=== PATIENT | male | born 1990 | race Caucasian/White ===

== ENCOUNTER 2019-11-13 07:29 | Outpatient (CLI) | payer OTHER ==
[2019-11-14 12:02] LABS: SARS-CoV-2 MS2 Positive; SARS-CoV-2 N Gene Negative; SARS-CoV-2 S Gene Negative; SARS-CoV-2 by NAA Not Detected (NotDetected); SARS-CoV-2 orf1ab Negative
== END 2019-11-13 07:30 | disposition home or self-care (01) ==
LOC: LABBT 07:29
PROVIDERS: ATTEND Urology
DX: N20.0 Calculus of kidney (principal); Z20.828 Contact with and (suspected) exposure to other viral communicable diseases
CPT/HCPCS: 87635; U0003